=== PATIENT | male | born 1945 | race Caucasian/White ===

== ENCOUNTER 2016-08-07 17:00 | Inpatient (IN) | payer MEDICARE, OTHER ==
[~2016-08-07] VITALS: Ht 172.7 cm; Wt 94.1 kg
[2016-08-07 18:09] LABS: BLOOD UREA NITROGEN 17 mg/dL (7-18)
[2016-08-07] MEDS ORDERED: AMLO5TAB4 PO (18:12)
[2016-08-07] MEDS ORDERED: TRAM50TA2 PO (18:12)
[2016-08-07] MEDS ORDERED: SIMV20TA3 PO (18:12)
[2016-08-07 18:14] LABS: ASPARTATE AMINO TRANSFERASE 60 U/L (15-37)
[2016-08-07 18:17] LABS: IS PT STATUS REG ER OR PRE ER? YES
[2016-08-07] MEDS ORDERED: ACETAMINOPHEN 500 MG TABLET ONE (18:24)
[2016-08-07] MEDS ORDERED: ACETAMINOPHEN 500 MG TABLET PO ONE (18:30)
[2016-08-07] MEDS ORDERED: SODIUM CHLORIDE 0.9% 1,000ML IVBOLUS ONE (18:30)
[2016-08-07] MEDS ORDERED: CEFTRIAXONE PMX 1GM/50ML 50 ML ONE (19:11)
[2016-08-07] MEDS ORDERED: ALBUTEROL/IPRATROPIUM 2.5MG/0.5MG, 3 ML ONE (19:14)
[2016-08-07] MEDS ORDERED: ALBUTEROL/IPRATROPIUM 2.5MG/0.5MG, 3 ML NPPB ONE (19:30)
[2016-08-07] MEDS ORDERED: CEFTRIAXONE PMX 1GM/50ML 50 ML IV ONE (19:30)
[2016-08-07] MEDS ORDERED: AZITHROMYCIN 500 MG in SODIUM CHLORIDE 0.9% 250 ML IV ONE (19:30)
[2016-08-07] MEDS ORDERED: ACETAMINOPHEN 325 MG TABLET PO PRN (21:30)
[2016-08-07] MEDS ORDERED: ALBUTEROL/IPRATROPIUM 2.5MG/0.5MG, 3 ML IPPB PRN (21:30)
[2016-08-07] MEDS ORDERED: NITROGLYCERIN 0.4 MG BOTTLE (25 TABS) SL PRN (21:30)
[2016-08-07] MEDS ORDERED: LABETALOL 5MG/ML, 20ML IV PRN (21:30)
[2016-08-07] MEDS ORDERED: NITROGLYCERIN 0.4 MG/SPRAY SL PRN (21:30)
[2016-08-07] MEDS ORDERED: ONDANSETRON ODT 4 MG PO PRN (21:30)
[2016-08-07] MEDS: SODIUM CHLORIDE 0.9% 1,000 ML IV SCH (22:32)
[2016-08-07 22:41] VITALS: BP 114/52
[2016-08-07] MEDS ORDERED: ALBUTEROL/IPRATROPIUM 2.5MG/0.5MG, 3 ML NPPB PRN (23:30)
[2016-08-08 00:10] VITALS: BP 114/52
[2016-08-08 00:16] VITALS: BP 114/52
[2016-08-08] MEDS: GUAIFENESIN 200 MG TABLET PO SCH ×5 (00:38→20:35)
[2016-08-08] MEDS ORDERED: FLU VACC QS2016-17 (36MOS+)UP/PF 0.5 ML IM-VACC ONE (01:00)
[2016-08-08 01:02] LABS: IS PT STATUS REG ER OR PRE ER? NO
[2016-08-08 01:24] LABS: RAPID INFLUENZA A Negative (Negative); RAPID INFLUENZA B Negative (Negative)
[2016-08-08] MEDS: methylPREDNISolone SOD SUCC 125 MG/2 ML IVPush SCH ×4 (01:34→18:45)
[2016-08-08] MEDS ORDERED: ALBUTEROL/IPRATROPIUM 2.5MG/0.5MG, 3 ML NPPB PRN (02:30)
[2016-08-08 03:00] VITALS: BP 116/69
[2016-08-08 04:24] LABS: HEMOGLOBIN 15.3 g/dL (13.7-18.0)
[2016-08-08 04:29] LABS: BLOOD UREA NITROGEN 14 mg/dL (7-18)
[2016-08-08 04:40] LABS: IS PT STATUS REG ER OR PRE ER? NO
[2016-08-08] MEDS: SODIUM CHLORIDE 0.9% 1,000 ML IV SCH (07:00)
[2016-08-08 09:51] LABS: IS PT STATUS REG ER OR PRE ER? NO
[2016-08-08] MEDS: AMLODIPINE 5 MG TABLET PO SCH (12:10)
[2016-08-08] MEDS: HEPARIN 5,000 UNITS/ML, 1ML SQ SCH ×2 (12:11→20:35)
[2016-08-08 17:35] VITALS: BP 113/63
[2016-08-08] MEDS ORDERED: AZITHROMYCIN 500 MG in SODIUM CHLORIDE 0.9% 250 ML IV ONE (19:30)
[2016-08-08] MEDS: CEFTRIAXONE PMX 1GM/50ML 50 ML IV SCH (20:07)
[2016-08-08] MEDS: SIMVASTATIN 20 MG TABLET PO SCH (20:35)
[2016-08-08] MEDS: ALBUTEROL/IPRATROPIUM 2.5MG/0.5MG, 3 ML NPPB SCH (21:30)
[2016-08-09] MEDS: methylPREDNISolone SOD SUCC 125 MG/2 ML IVPush SCH ×2 (00:17→06:46)
[2016-08-09 01:55] VITALS: BP 118/68
[2016-08-09] MEDS: GUAIFENESIN 200 MG TABLET PO SCH ×4 (06:00→20:02)
[2016-08-09] MEDS: ALBUTEROL/IPRATROPIUM 2.5MG/0.5MG, 3 ML NPPB SCH ×4 (06:15→18:39)
[2016-08-09 06:22] LABS: BLOOD UREA NITROGEN 17 mg/dL (7-18)
[2016-08-09] MEDS: HEPARIN 5,000 UNITS/ML, 1ML SQ SCH ×3 (06:45→22:00)
[2016-08-09 06:50] VITALS: BP 122/71
[2016-08-09] MEDS: AZITHROMYCIN 250 MG TABLET PO SCH (09:00)
[2016-08-09] MEDS: AMLODIPINE 5 MG TABLET PO SCH (10:48)
[2016-08-09] MEDS ORDERED: FUROSEMIDE 20 MG/2 ML IV ONE (11:00)
[2016-08-09 14:32] VITALS: BP 110/65
[2016-08-09] MEDS: FUROSEMIDE 20 MG/2 ML IV SCH (17:14)
[2016-08-09] MEDS: NICOTINE 14MG/24 HR PATCH.TD24 TD SCH (17:15)
[2016-08-09 19:21] VITALS: BP 107/63
[2016-08-09] MEDS ORDERED: AZITHROMYCIN 500 MG TABLET PO ONE (19:30)
[2016-08-09] MEDS: CEFTRIAXONE PMX 1GM/50ML 50 ML IV SCH (20:01)
[2016-08-09] MEDS: SIMVASTATIN 20 MG TABLET PO SCH (20:02)
[2016-08-10 01:06] VITALS: BP 108/62
[2016-08-10] MEDS: HEPARIN 5,000 UNITS/ML, 1ML SQ SCH ×3 (05:50→21:54)
[2016-08-10] MEDS: GUAIFENESIN 200 MG TABLET PO SCH ×4 (05:54→21:54)
[2016-08-10] MEDS: ALBUTEROL/IPRATROPIUM 2.5MG/0.5MG, 3 ML NPPB SCH ×4 (06:10→20:00)
[2016-08-10 07:18] VITALS: BP 118/71
[2016-08-10] MEDS: AMLODIPINE 5 MG TABLET PO SCH (08:25)
[2016-08-10] MEDS: FUROSEMIDE 20 MG/2 ML IV SCH (08:25)
[2016-08-10] MEDS: AZITHROMYCIN 250 MG TABLET PO SCH (08:25)
[2016-08-10 11:58] LABS: BLOOD UREA NITROGEN 23 mg/dL (7-18)
[2016-08-10] MEDS ORDERED: PNEUMOC 13-VALENT VACC, 0.5 ML IM-VACC ONE (12:00)
[2016-08-10 12:58] VITALS: BP 113/58
[2016-08-10] MEDS: NICOTINE 14MG/24 HR PATCH.TD24 TD SCH (16:30)
[2016-08-10 18:42] VITALS: BP 134/84
[2016-08-10] MEDS: CEFTRIAXONE PMX 1GM/50ML 50 ML IV SCH (19:44)
[2016-08-10] MEDS: SIMVASTATIN 20 MG TABLET PO SCH (21:54)
[2016-08-11 01:54] VITALS: BP 115/65
[2016-08-11 05:36] LABS: BLOOD UREA NITROGEN 20 mg/dL (7-18)
[2016-08-11] MEDS: HEPARIN 5,000 UNITS/ML, 1ML SQ SCH ×2 (05:47→14:00)
[2016-08-11] MEDS: GUAIFENESIN 200 MG TABLET PO SCH ×3 (05:47→16:00)
[2016-08-11] MEDS: ALBUTEROL/IPRATROPIUM 2.5MG/0.5MG, 3 ML NPPB SCH ×3 (07:00→14:40)
[2016-08-11 07:22] VITALS: BP 122/65
[2016-08-11] MEDS: AZITHROMYCIN 250 MG TABLET PO SCH (09:49)
[2016-08-11] MEDS: AMLODIPINE 5 MG TABLET PO SCH (09:51)
[2016-08-11] MEDS ORDERED: ALBU2.5V NEB (10:35)
[2016-08-11] MEDS ORDERED: TIOT18CA INH (10:35)
[2016-08-11] MEDS ORDERED: CEFD300C2 PO (10:35)
[2016-08-11] MEDS ORDERED: AZIT-14 PO (10:35)
[2016-08-11] MEDS ORDERED: PRED20TA PO (10:35)
[2016-08-11 12:48] VITALS: BP 135/76
== END 2016-08-11 16:25 | disposition home or self-care (01) | DRG 871 ==
LOC: ED 20:01 → EDIP 20:13 → CCU 22:05 → ICU 08-08 10:41 → 3NE 08-08 17:03
PROVIDERS: ADMIT Family Medicine; ATTEND Family Medicine
DX: A41.9 Sepsis, unspecified organism (principal); J18.9 Pneumonia, unspecified organism; J96.01 Acute respiratory failure with hypoxia; J44.0 Chronic obstructive pulmonary disease with (acute) lower respiratory infection; N17.9 Acute kidney failure, unspecified; J44.1 Chronic obstructive pulmonary disease with (acute) exacerbation; I24.8 Other forms of acute ischemic heart disease; I10 Essential (primary) hypertension; G89.29 Other chronic pain; E78.5 Hyperlipidemia, unspecified; J98.01 Acute bronchospasm; M54.9 Dorsalgia, unspecified; E87.70 Fluid overload, unspecified; F17.200 Nicotine dependence, unspecified, uncomplicated; Z88.1 Allergy status to other antibiotic agents; Z99.81 Dependence on supplemental oxygen; R11.0 Nausea; R19.7 Diarrhea, unspecified
CPT/HCPCS: 36415; 71010; 80048; 80053; 81001; 83605; 83880; 84145; 84484; 85025; 87040; 87081; 87400; 90686; 93005; 94640; 96361; 96365; 96367; J0456; J0696; J1644; J7620; G0009; J1940; J2930; J7030; J7050; J7512

== ENCOUNTER → 2016-08-28 | Outpatient (CLI) | payer OTHER ==
[~2016-08-28] MED LIST: ALBU2.5V NEB; AMLO5TAB4 PO; AZIT-14 PO; CEFD300C2 PO; PRED20TA PO; SIMV20TA3 PO; TIOT18CA INH; TRAM50TA2 PO
== END | disposition home or self-care (01) ==
LOC: RAD 12:01
PROVIDERS: ATTEND Internal Medicine
DX: Z09 Encounter for follow-up examination after completed treatment for conditions other than malignant neoplasm (principal); J18.9 Pneumonia, unspecified organism
CPT/HCPCS: 71020